=== PATIENT | female | born 1945 | race Caucasian/White ===

== ENCOUNTER 2022-04-12 08:10 | Emergency (ER) | payer OTHER ==
[~2022-04-12] VITALS: Ht 149.9 cm; Wt 65.3 kg
[2022-04-12 08:51] VITALS: BP_SYST 146
--- NOTE | 2022-04-12 09:01 | NUR ---
PT BIB DAUGHTER AWAKE AND ALERT AOX4, NO SOB OR DISTRESS. PT C/O PAIN TO LEFT SHOULDER AFTER A MECHAMICAL FALL IN SHOWER YESTERDAY . PAIN 05/28. PT DENIES N/V, AND KO.
--- NOTE | 2022-04-12 09:02 | NUR ---
MD DR HERNANDEZ AT BEDSIDE
[2022-04-12 11:39] VITALS: BP_SYST 145
--- NOTE | 2022-04-12 11:40 | NUR ---
Patient given written and verbal discharge instructions and verbalizes understanding. ER MD DR HERNANDEZ discussed with patient the results and treatment provided. Patient in stable condition. ID arm band removed. Patient educated on pain management and to follow up with PMD. Pain Scale 2/10. Opportunity for questions provided and answered. Medication side effect fact sheet provided.
== END 2022-04-12 11:39 | disposition home or self-care (01) ==
LOC: SED 08:10
DX: S13.4XXA Sprain of ligaments of cervical spine, initial encounter (principal); S43.52XA Sprain of left acromioclavicular joint, initial encounter; S00.93XA Contusion of unspecified part of head, initial encounter; E11.9 Type 2 diabetes mellitus without complications; Z79.899 Other long term (current) drug therapy; W18.2XXA Fall in (into) shower or empty bathtub, initial encounter; Y93.89 Activity, other specified; Y92.89 Other specified places as the place of occurrence of the external cause; Y99.8 Other external cause status
CPT/HCPCS: 70450-TC; 72125-TC; 73030; 76376; 99284